=== PATIENT | male | born 1955 | race Caucasian/White ===

== ENCOUNTER 2017-10-06 17:36 | Emergency (ER) | payer OTHER, BC ==
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
[2017-10-06] MEDS ORDERED: HYDROmorphone 1 MG/ML Syringe IM ONE (18:32)
[2017-10-06] MEDS ORDERED: Lidocaine 1% 30 ML SDV INJECT ONE (19:05)
== END 2017-10-06 20:38 | disposition home or self-care (01) ==
LOC: DL.ED 17:36
DX: S93.121A Dislocation of metatarsophalangeal joint of right great toe, initial encounter (principal); S93.144A Subluxation of metatarsophalangeal joint of right lesser toe(s), initial encounter; I10 Essential (primary) hypertension; E78.00 Pure hypercholesterolemia, unspecified; E03.9 Hypothyroidism, unspecified; Z79.899 Other long term (current) drug therapy; V89.2XXA Person injured in unspecified motor-vehicle accident, traffic, initial encounter; Y92.410 Unspecified street and highway as the place of occurrence of the external cause
CPT/HCPCS: 28630; 73620; 73630; 96372; 99283; J1170

== ENCOUNTER 2023-05-12 05:57 | Day surgery (SDC) | payer MEDICARE, OTHER ==
[2023-05-12] MEDS ORDERED: Dextrose 5%-0.45% NaCl 1,000 ML IV SCH (06:00)
[2023-05-12] MEDS ORDERED: Sodium Chloride 0.9% 10 ML Syringe FLUSH PRN (06:00)
[2023-05-12] MEDS ORDERED: Midazolam 1 MG/ML 2 ML SDV ONE (06:52)
[2023-05-12] MEDS ORDERED: fentaNYL 100 MCG/2 ML SDV ONE (06:53)
[2023-05-12] MEDS ORDERED: fentaNYL 100 MCG/2 ML SDV IV ONE ×2 (06:58→06:59)
[2023-05-12] MEDS ORDERED: Midazolam 1 MG/ML 2 ML SDV IV ONE ×5 (07:00→07:15)
== END 2023-05-12 08:41 | disposition home or self-care (01) ==
LOC: DL.ENDO 05:57
PROVIDERS: ATTEND Internal Medicine Gastroenterology
DX: Z12.11 Encounter for screening for malignant neoplasm of colon (principal); K63.5 Polyp of colon; K62.1 Rectal polyp; I12.9 Hypertensive chronic kidney disease with stage 1 through stage 4 chronic kidney disease, or unspecified chronic kidney disease; N18.9 Chronic kidney disease, unspecified; E66.09 Other obesity due to excess calories; E78.5 Hyperlipidemia, unspecified; E03.9 Hypothyroidism, unspecified; Z68.35 Body mass index [BMI] 35.0-35.9, adult
CPT/HCPCS: 45385; J2250; J3010; J7042